=== PATIENT | female | born 1965 | race Caucasian/White ===

== ENCOUNTER 2017-12-24 10:38 | Outpatient (CLI) | payer OTHER ==
[2017-12-24 18:11] LABS: THYROID STIMULATING HORMONE 2.06 uIU/mL (0.34-5.60)
[2017-12-24 18:13] LABS: FREE T4 (FREE THYROXINE) 0.76 ng/dL (0.58-1.64)
== END 2017-12-24 10:39 | disposition home or self-care (01) ==
LOC: LAB.F 10:38
PROVIDERS: ATTEND Nurse Practitioner Family
DX: E03.9 Hypothyroidism, unspecified (principal)
CPT/HCPCS: 36415; 84439; 84443; 86800

== ENCOUNTER 2018-03-07 08:00 | Outpatient (CLI) | payer OTHER ==
[2018-03-07 18:37] LABS: CREATININE 0.9 mg/dL (0.4-1.0)
[2018-03-07 18:38] LABS: ALBUMIN 4.1 g/dL (3.2-5.5); ALBUMIN/GLOBULIN RATIO 1.3 (1.0-2.2); BILIRUBIN,TOTAL 0.4 mg/dL (0.2-1.0); CALCIUM 9.2 mg/dL (8.5-10.3); TOTAL PROTEIN 7.3 g/dL (6.7-8.2)
[2018-03-07 19:11] LABS: PLATELET ESTIMATE, MANUAL NORMAL (130-450,000) (NORMAL); PLATELET MORPHOLOGY PLATELET CLUMPING (NORMAL); RBC MORPHOLOGY (MULTIPLE) NORMAL APPEARANCE (NORMAL)
[2018-03-07 19:12] LABS: BASOPHILS # (AUTO) 0.1 10^3/uL (0.0-0.1); BASOPHILS % (AUTO) 0.9 %; EOSINOPHILS # (AUTO) 0.2 10^3/uL (0.0-0.7); EOSINOPHILS % (AUTO) 2.4 %; HGB - HEMOGLOBIN 12.6 g/dL (12.0-16.0); LYMPHOCYTES # (AUTO) 2.2 10^3/uL (1.5-3.5); LYMPHOCYTES % (AUTO) 33.8 %; MEAN CORPUSCULAR HEMOGLOBIN 29.5 pg (27.0-31.0); MEAN CORPUSCULAR HGB CONC 32.8 g/dL (32.0-36.0); MEAN PLATELET VOLUME 9.9 fL (7.9-10.8); MONOCYTES # (AUTO) 0.5 10^3/uL (0.0-1.0); MONOCYTES % (AUTO) 7.9 %; NEUTROPHILS # (AUTO) 3.6 10^3/uL (1.5-6.6); RED BLOOD COUNT 4.29 10^6/uL (4.20-5.40); RED CELL DISTRIBUTION WIDTH 12.8 % (12.0-15.0); WHITE BLOOD COUNT 6.6 x10^3/uL (4.8-10.8)
== END 2018-03-07 08:01 | disposition home or self-care (01) ==
LOC: LAB.S 08:00
PROVIDERS: ATTEND Nurse Practitioner Family
DX: R10.9 Unspecified abdominal pain (principal)
CPT/HCPCS: 36415; 80053; 82150; 83690; 85025; 87493

== ENCOUNTER 2018-03-07 08:00 | Outpatient (CLI) | payer OTHER | END 2018-03-07 08:01 | disposition home or self-care (01) | LOC: LAB.R 08:00 | PROVIDERS: ATTEND Nurse Practitioner Family | DX: R10.9 Unspecified abdominal pain (principal) | CPT/HCPCS: 87493 ==

== ENCOUNTER 2018-03-21 07:20 | Outpatient (CLI) | payer OTHER ==
--- NOTE | 2018-03-21 10:58 | Ultrasound Report ---
COMPLETE ABDOMINAL ULTRASOUND: 03/21/2018 CLINICAL INDICATION: Abdominal pain. TECHNIQUE: Real-time scanning was performed with consumer sales representative static images obtained. FINDINGS: The liver measures 12.2 cm. Hepatic echogenicity is normal. No intrahepatic biliary dilatation or focal parenchymal lesion is present. The common bile duct measures 2 mm. The gallbladder demonstrates multiple mobile stones. No wall thickening or pericholecystic fluid is present. The visualized pancreas is unremarkable. The kidneys are normal, with the right measuring 9.8 cm and the left measuring 10.6 cm. The spleen measures 9.9 cm, and demonstrates normal echotexture. The abdominal aorta is normal in caliber. The inferior vena cava is unremarkable. No free fluid is present. IMPRESSION: CHOLELITHIASIS, WITHOUT EVIDENCE OF ACUTE CHOLECYSTITIS OR BILIARY OBSTRUCTION. TD: 03/21/2018 10:53
== END 2018-03-21 07:21 | disposition home or self-care (01) ==
LOC: DI 07:20
PROVIDERS: ATTEND Nurse Practitioner Family
DX: K80.20 Calculus of gallbladder without cholecystitis without obstruction (principal)
CPT/HCPCS: 76700

== ENCOUNTER 2019-04-27 07:52 | Day surgery (SDC) | payer OTHER ==
--- NOTE | 2019-04-27 07:51 | ANESTHESIA ---
Pre-Anesthesia VS, & Labs - Diagnosis R senile combined cataract - Procedure R extraction cataract w/IOL Vital Signs: Last Vital Signs Temp 36.2 C L 04/27/19 08:02 Pulse 75 04/27/19 08:02 Resp 12 04/27/19 08:02 BP 154/89 H 04/27/19 08:02 Pulse Ox 99 04/27/19 08:02 - NPO >8 hours - Is Patient ?: No Home Medications and Allergies Home Medications: Ambulatory Orders Zolpidem [Ambien] 5 mg PO HS 04/26/19 Zolpidem [Ambien] 5 mg PO HS 04/26/19 Allergies/Adverse Reactions: Allergies Allergy/AdvReac Type Severity Reaction Status Date / Time Sulfa (Sulfonamide Allergy Rash Verified 04/26/19 15:29 Antibiotics) Anes History & Medical History - Anesthetic History Anesthesia Complications: reports: No previous complications Family history of Anesthesia Complications: Denies Family history of Malignant Hyperthermia: Denies - Medical History Cardiovascular: reports: None Pulmonary: reports: None Gastrointestinal: reports: None Urinary: reports: None Musculoskeletal: reports: Osteoarthritis Endocrine/Autoimmune: reports: None Skin: reports: None - Surgical History Orthopedic: Knee replacement Exam General: Alert, Oriented x3 Dental: WNL Mouth Openin Fingerbreadth Neck Mobility: Normal Mallampati classification: II Respiratory: Lungs clear, Normal breath sounds Cardiovascular: Regular rate Neurological: Normal gait, Normal speech Mental/Cognitive Status: Alert/Oriented X3 Cognitive Status: Within normal limits Plan Anesthesia Type: MAC Consent for Procedure(s) Verified and Reviewed: Yes Code Status: Attempt Resuscitation ASA classification: 2-Mild systemic disease Is this case an emergency?: No
[~2019-04-27 07:52] MED LIST: CYCLOPENTOLATE 1% OPHTH DROPS 2 ML ONE; KETOROLAC 0.45% OPHTH DROPS ONE; PHENYLEPHRINE 2.5% OPHTH 2 ML DROPS ONE; PROPARACAINE 0.5% OPHTH DROPS 15 ML ONE
[2019-04-27] MEDS ORDERED: PROPARACAINE 0.5% OPHTH DROPS 15 ML RIGHTEYE ONE (07:57)
[2019-04-27] MEDS ORDERED: PHENYLEPHRINE 2.5% OPHTH 2 ML DROPS RIGHTEYE ONE (07:57)
[2019-04-27] MEDS ORDERED: KETOROLAC 0.45% OPHTH DROPS RIGHTEYE ONE (07:57)
[2019-04-27] MEDS ORDERED: CYCLOPENTOLATE 1% OPHTH DROPS 2 ML RIGHTEYE ONE (07:57)
[2019-04-27] MEDS ORDERED: LACTATED RINGERS 500 ML IV ONE (07:57)
[2019-04-27] MEDS ORDERED: BRIMONIDINE 0.2% OPHTH DROPS 5 ML OPTH ONE (08:58)
[2019-04-27] MEDS ORDERED: CHONDR SULF/HYALURONATE SYRINGE IO ONE (08:59)
[2019-04-27] MEDS ORDERED: TIMOLOL 0.5% OPHTH DROPS OPTH ONE (08:59)
[2019-04-27] MEDS ORDERED: BSS/LIDOCAINE/EPINEPHRINE 1 ML SYRINGE IO ONE (08:59)
[2019-04-27] MEDS ORDERED: EPINEPHrine 1 MG/ML AMP IVP ONE (08:59)
[2019-04-27] MEDS ORDERED: VANCOMYCIN OPHTHALMI 8MG/0.8ML 8 MG/0.8 ML SYRINGE IO ONE ×2 (09:01→10:56)
[2019-04-27] MEDS ORDERED: TRIAMCIN/MOXIFLOX OPHTHALMIC 0.6 ML VIAL IO ONE ×2 (09:01→10:56)
[2019-04-27] MEDS ORDERED: MIDAZOLAM 2 MG/2 ML VIAL IVP ONE (09:11)
[2019-04-27] MEDS ORDERED: fentaNYL 100 MCG/2 ML VIAL IVP ONE (09:11)
[2019-04-27 09:35] VITALS: BP 122/68
--- NOTE | 2019-04-27 09:49 | OPERATIVE REPORT ---
DATE OF SERVICE: 04/27/2019 Physician: Veto Luong MD PREOPERATIVE DIAGNOSIS: Visually significant cataract, right eye. This was her first cataract surge ry. POSTOPERATIVE DIAGNOSIS: Visually significant cataract, right eye. This was her first cataract surg miguel. PROCEDURE: Phacoemulsification with posterior chamber intraocular lens implant, right eye. SURGEON: Veto Luong MD ANESTHESIA: Monitored anesthesia care. COMPLICATIONS: None. OPERATIVE INDICATIONS: This is a 53-year-old woman with progressive vision loss in the right eye due to 2+ nuclear sclerotic and 2+ posterior subcapsular cataract. Best corrected visual acuity was 20/ 25, with glare to hand motion vision. INDICATIONS FOR SURGERY: Overall decrease in vision, difficulty seeing words on the computer screen, difficulty reading, difficulty seeing words, closed captions or game scores on TV; difficulty seeing street signs, difficulty driving in low light or at night, difficulty driving at night because headl ights from other vehicles, and difficulty with glare or bright lights in any situation. She was cons ented at length concerning risks and benefits of cataract surgery, after which she expressed a desire to proceed with surgery. OPERATIVE PROCEDURE: Patient was taken into OR #3 and placed under monitored anesthesia care. A jewell gical timeout was conducted confirming correct patient, correct procedure, and correct surgical site. She was given topical anesthesia, and then prepped and draped in the usual sterile fashion. The ey e was entered at the 12 and 9 o'clock positions. Intracameral Shugarcaine was injected into the ante rior chamber, followed by Viscoat. A continuous-tear curvilinear capsulorrhexis was performed. The nucleus was hydrodissected and phacoemulsified. Cortex was evacuated using automated infusion and as piration. Provisc was injected into the capsular bag, and a 24.5 diopter intraocular lens was insert ed in the bag. Approximately 0.8 mL of a mixture of triamcinolone, moxifloxacin, and vancomycin was injected subconjunctivally in the superior quadrant for infection and inflammation prophylaxis. I an d A was used to evacuate the viscoelastic materials. The eye was inflated to physiologic pressure us ing a balanced salt solution and found to be watertight. Patient was taken from the operating room i n good condition and given postoperative instructions. TD: 04/27/2019 09:22
[2019-04-27] MEDS ORDERED: BSS/LIDOCAINE/EPINEPHRINE 1 ML SYRINGE ONE (10:56)
[2019-04-27] MEDS ORDERED: EPINEPHrine 1 MG/ML AMP ONE (10:56)
[2019-04-27] MEDS ORDERED: BRIMONIDINE 0.2% OPHTH DROPS 5 ML ONE (10:56)
[2019-04-27] MEDS ORDERED: TIMOLOL 0.5% OPHTH DROPS ONE (10:56)
== END 2019-04-27 07:53 | disposition home or self-care (01) ==
LOC: SDS 07:52
PROVIDERS: ATTEND Ophthalmology
PROC: 08RJ3JZ Replacement of Right Lens with Synthetic Substitute, Percutaneous Approach (ICD-10-PCS; principal; 2019-04-27 09:00)
DX: H25.811 Combined forms of age-related cataract, right eye (principal)
CPT/HCPCS: 66984; A9270; J3490; V2632

== ENCOUNTER 2019-05-11 06:08 | Day surgery (SDC) | payer OTHER ==
[2019-05-11] MEDS ORDERED: KETOROLAC 0.45% OPHTH DROPS ONE (06:28)
[2019-05-11] MEDS ORDERED: PHENYLEPHRINE 2.5% OPHTH 2 ML DROPS ONE (06:28)
[2019-05-11] MEDS ORDERED: CYCLOPENTOLATE 1% OPHTH DROPS 2 ML ONE (06:28)
[2019-05-11] MEDS ORDERED: PROPARACAINE 0.5% OPHTH DROPS 15 ML ONE (06:28)
[2019-05-11] MEDS ORDERED: KETOROLAC 0.45% OPHTH DROPS LEFTEYE ONE (06:40)
[2019-05-11] MEDS ORDERED: CYCLOPENTOLATE 1% OPHTH DROPS 2 ML LEFTEYE ONE (06:40)
[2019-05-11] MEDS ORDERED: PROPARACAINE 0.5% OPHTH DROPS 15 ML LEFTEYE ONE (06:40)
[2019-05-11] MEDS ORDERED: PHENYLEPHRINE 2.5% OPHTH 2 ML DROPS LEFTEYE ONE (06:40)
[2019-05-11] MEDS ORDERED: LACTATED RINGERS 500 ML IV ONE (06:47)
[2019-05-11] MEDS ORDERED: BRIMONIDINE 0.2% OPHTH DROPS 5 ML ONE (07:02)
[2019-05-11] MEDS ORDERED: TIMOLOL 0.5% OPHTH DROPS ONE (07:03)
[2019-05-11] MEDS ORDERED: TRIAMCIN/MOXIFLOX OPHTHALMIC 0.6 ML VIAL IO ONE ×2 (07:03→07:36)
[2019-05-11] MEDS ORDERED: BSS/LIDOCAINE/EPINEPHRINE 1 ML SYRINGE ONE (07:04)
[2019-05-11] MEDS ORDERED: VANCOMYCIN OPHTHALMI 8MG/0.8ML 8 MG/0.8 ML SYRINGE IO ONE ×2 (07:04→07:38)
--- NOTE | 2019-05-11 07:11 | ANESTHESIA ---
Pre-Anesthesia VS, & Labs - Diagnosis left senile combined cataract - Procedure left cataract extraction with intraocular lens Vital Signs: Temp Pulse Resp BP Pulse Ox 36.3 C L 84 16 151/102 H 95 05/11/19 06:28 05/11/19 06:28 05/11/19 06:28 05/11/19 06:28 05/11/19 06:28 Height 5 ft 6 in Weight (kg) 85.9 kg - NPO >8 hours - Is Patient ?: No Home Medications and Allergies Zolpidem [Ambien] 5 mg PO HS 04/26/19 Allergies/Adverse Reactions: Allergies Allergy/AdvReac Type Severity Reaction Status Date / Time Sulfa (Sulfonamide Allergy Rash Verified 04/26/19 15:29 Antibiotics) Anes History & Medical History - Anesthetic History Anesthesia Complications: reports: No previous complications - Medical History Cardiovascular: reports: None Pulmonary: reports: None Gastrointestinal: reports: None Urinary: reports: None Musculoskeletal: reports: Osteoarthritis Endocrine/Autoimmune: reports: None Skin: reports: None - Surgical History Orthopedic: Knee replacement Exam General: Alert Dental: WNL Mouth Opening: Greater than 4 Fingerbreadths Mallampati classification: II Thyromental Distance: greater than 6 cm Respiratory: Lungs clear Cardiovascular: Regular rate Plan Anesthesia Type: MAC Consent for Procedure(s) Verified and Reviewed: Yes Code Status: Attempt Resuscitation ASA classification: 2-Mild systemic disease Is this case an emergency?: No
[2019-05-11] MEDS ORDERED: CHONDR SULF/HYALURONATE SYRINGE IO ONE (07:35)
[2019-05-11] MEDS ORDERED: BRIMONIDINE 0.2% OPHTH DROPS 5 ML OPTH ONE (07:35)
[2019-05-11] MEDS ORDERED: EPINEPHrine 1 MG/ML AMP IVP ONE (07:35)
[2019-05-11] MEDS ORDERED: BSS/LIDOCAINE/EPINEPHRINE 1 ML SYRINGE IO ONE (07:36)
[2019-05-11] MEDS ORDERED: TIMOLOL 0.5% OPHTH DROPS OPTH ONE (07:36)
[2019-05-11] MEDS ORDERED: MIDAZOLAM 2 MG/2 ML VIAL IVP ONE (07:38)
[2019-05-11] MEDS ORDERED: fentaNYL 100 MCG/2 ML VIAL IVP ONE (07:38)
[2019-05-11 07:55] VITALS: BP 123/82
--- NOTE | 2019-05-11 08:20 | OPERATIVE REPORT ---
DATE OF SERVICE: 05/11/2019 Physician: Veto Luong MD PREOPERATIVE DIAGNOSIS: Visually significant cataract, left eye. Cataract surgery was performed on the right eye on 04/27/2019. POSTOPERATIVE DIAGNOSIS: Visually significant cataract, left eye. PROCEDURE: Phacoemulsification with posterior chamber intraocular lens implant, left eye. SURGEON: Dr. Veto Luong. ANESTHESIA: Monitored anesthesia care. COMPLICATIONS: None. OPERATIVE INDICATIONS: This is a 53-year-old woman with progressive vision loss in the left eye due to 2+ nuclear sclerotic and 2+ posterior subcapsular cataract. Best corrected visual acuity was 20/25 with glare to 20/500 in the left eye. Indications for surgery are difficulty reading, difficulty seeing street signs, difficulty driving in low light or at night, difficulty driving at night because of headlights from other vehicles, difficulty with glare or bright lights in any situation, and decreased acuity with firearms. She was consented at length concerning the risks and benefits of cataract surgery, after which she expressed a desire to proceed with surgery. OPERATIVE PROCEDURE: Patient was taken into OR #3 and placed under monitored anesthesia care. A surgical timeout was conducted confirming correct patient, correct procedure, and correct surgical site. She was given topical anesthesia, and then prepped and draped in the usual sterile fashion. The eye was entered at the 6 and 3 o'clock positions. Intracameral Shugarcaine was injected into the anterior chamber, followed by Viscoat. A continuous-tear curvilinear capsulorrhexis was performed. The nucleus was hydrodissected and phacoemulsified. The cortex was evacuated using automated infusion and aspiration. Provisc was injected in the capsular bag, and a 24.5 diopter intraocular lens inserted in the bag. Approximately 0.8 mL of a mixture of triamcinolone, moxifloxacin and vancomycin was injected subconjunctivally in the superior quadrant for infection and inflammation prophylaxis. I and A was used to evacuate the viscoelastic materials. The eye was inflated to physiologic pressure using a balanced salt solution and found to be watertight. Patient was taken from the operating room in good condition and given postoperative instructions. TD: 05/11/2019 08:03 [facility]
== END 2019-05-11 06:09 | disposition home or self-care (01) ==
LOC: SDS 06:08
PROVIDERS: ATTEND Ophthalmology
PROC: 08RK3JZ Replacement of Left Lens with Synthetic Substitute, Percutaneous Approach (ICD-10-PCS; principal; 2019-05-11 07:30)
DX: H25.812 Combined forms of age-related cataract, left eye (principal); Z98.41 Cataract extraction status, right eye
CPT/HCPCS: 66984; A9270; J3490; V2632